=== PATIENT | male | born 1945 | race Caucasian/White ===

== ENCOUNTER 2017-07-03 13:59 | Emergency (ER) | payer MEDICARE ==
--- NOTE | 2017-07-03 15:27 | ED ---
General Adult HPI - General Chief complaint: Headache Stated complaint: Headache/ Brain Surgery Pt Time Seen by Provider: 07/03/17 15:11 Source: patient, RN notes reviewed, old records reviewed Mode of arrival: wheelchair Limitations: no limitations - History of Present Illness Initial comments: This is a 71-year-old male here for reevaluation patient. Patient's prior history of stroke. History of patient not currently not on blood thinners, no trauma. Complains of headache for 2 days worsening rating down the back right side of his neck. No neurological changes or complaints from normal. He denies any nausea or vomiting. Take medications as prescribed to no change in blood pressure at home, patient does have follow-up with his neurosurgeon on Tuesday - Related Data Home Medications Medication Instructions Recorded Confirmed Allopurinol [Zyloprim] 100 mg PO HS 03/27/14 07/03/17 Atorvastatin [Lipitor] 10 mg PO HS 07/03/15 07/03/17 Omeprazole 40 mg PO HS 05/14/16 07/03/17 Aspirin EC [Ecotrin Low Dose] 81 mg PO HS 07/03/17 07/03/17 Isosorbide Dinitrate 5 mg PO BID 07/03/17 07/03/17 Losartan [Cozaar] 50 mg PO HS 07/03/17 07/03/17 Multivitamins, Thera [Multivitamin 1 tab PO HS 07/03/17 07/03/17 (formulary)] Allergies Allergy/AdvReac Type Severity Reaction Status Date / Time clopidogrel bisulfate Allergy Rash/Hives Verified 07/03/17 15:56 [From Plavix] Review of Systems ROS Statement: Those systems with pertinent positive or pertinent negative responses have been documented in the HPI. ROS Other: All systems not noted in ROS Statement are negative. Past Medical History Past Medical History: CVA/TIA, Hypertension, Renal Disease Additional Past Medical History / Comment(s): GOUT, HX OF SEVERAL TIA'S AND (1) CVA FEBRUARY 2014 WITH LEFT SIDED WEAKNESS, 1 KIDNEY DOES NOT FUNCTION WELL - POSSIBLY HEREDITARY., DIFFICULTY SWALLOWIN-FOOD GETS STUCK. History of Any Multi-Drug Resistant Organisms: None Reported Past Surgical History: Orthopedic Surgery Additional Past Surgical History / Comment(s): LT KNEE ARTHROSCOPY, RT FOOT SX- TO FIX 2 BROKEN TOES,VASECTOMY Past Anesthesia/Blood Transfusion Reactions: No Reported Reaction, Family History of Problems w/ Anesthesia Additional Past Anesthesia/Blood Transfusion Reaction / Comment(s): PTS DAUGHTER HAS DIFFICULTY WAKING UP. Past Psychological History: No Psychological Hx Reported Smoking Status: Former smoker Past Alcohol Use History: Occasional Past Drug Use History: None Reported - Past Family History Father Family Medical History: Congestive Heart Failure (CHF), COPD Mother Family Medical History: Diabetes Mellitus General Exam Limitations: no limitations General appearance: alert, in no apparent distress Head exam: Present: atraumatic, normocephalic, normal inspection Eye exam: Present: normal appearance, PERRL, EOMI. Absent: scleral icterus, conjunctival injection, periorbital swelling ENT exam: Present: normal exam, mucous membranes moist Neck exam: Present: normal inspection. Absent: tenderness, meningismus, lymphadenopathy Respiratory exam: Present: normal lung sounds bilaterally. Absent: respiratory distress, wheezes, rales, rhonchi, stridor Cardiovascular Exam: Present: regular rate, normal rhythm, normal heart sounds. Absent: systolic murmur, diastolic murmur, rubs, gallop, clicks GI/Abdominal exam: Present: soft, normal bowel sounds. Absent: distended, tenderness, guarding, rebound, rigid Extremities exam: Present: normal inspection, full ROM, normal capillary refill. Absent: tenderness, pedal edema, joint swelling, calf tenderness Back exam: Present: normal inspection Neurological exam: Present: alert, oriented X3, CN II-XII intact Psychiatric exam: Present: normal affect, normal mood Skin exam: Present: warm, dry, intact, normal color. Absent: rash Course Vital Signs 07/03/17 14:36 Temperature 97.8 F Pulse Rate 76 Respiratory 16 Rate Blood Pressure 177/88 O2 Sat by Pulse 97 Oximetry Medical Decision Making - Medical Decision Making 71 male the ER for evaluation of headache. Patient has scapular pain which is negative, history of brain bleed, that was concerned. Patient be discharged home, follow-up with neurosurgeon on Tuesday - Radiology Data Radiology results: report reviewed (CT The brain is negative), image reviewed Disposition Clinical Impression: Tension headache, Headache Disposition: HOME SELF-CARE Condition: Good Instructions: Acute Headache (ED) Referrals: Vijaya Landry MD [Primary Care Provider] - 1-2 days
--- NOTE | 2017-07-03 15:48 | CT ---
EXAMINATION TYPE: CT brain wo con DATE OF EXAM: 07/03/2017 COMPARISON: 06/15/2016 INDICATION: ABAD, History of brain surgery for hematoma DLP: 1159 mGycm, Automated exposure control for dose reduction was used. CONTRAST: None CT of the brain is performed utilizing 3 mm thick sections through the posterior fossa and 3 mm thick sections through the remaining calvarium. Study is performed within 24 hours of arrival to the hosp [facility]. No abnormal hyperdensity is present to suggest an acute intracranial hemorrhage. No mass lesion is evident. No acute infarcts are evident. Bilateral brunilda holes are present from prior craniotomies. No abnormal extra-axial collections are evident. There is some minimal residual extra-axial space near the anteri or left brunilda hole. Ventricles and sulci are appropriate for the patient age. There is opacification of the left sphenoid sinus as well as ethmoid air cells posteriorly on the lef t. The right frontal sinus is aplastic. Mastoid air cells are clear. No recurrent or residual subdural hematomas are evident IMPRESSIONS: 1. No recurrent or residual hematomas. 2. Chronic appearing white matter ischemic changes with age-related atrophy. 3. No acute intracranial process.
[2017-07-03 16:42] VITALS: BP 171/89; PULSE 63; RESP 18; TEMP 98.7
== END 2017-07-03 16:43 | disposition home or self-care (01) ==
LOC: EC 13:59
DX: G44.209 Tension-type headache, unspecified, not intractable (principal); I10 Essential (primary) hypertension; Z86.73 Personal history of transient ischemic attack (TIA), and cerebral infarction without residual deficits; Z87.891 Personal history of nicotine dependence; Z79.82 Long term (current) use of aspirin; Z79.899 Other long term (current) drug therapy; Z88.8 Allergy status to other drugs, medicaments and biological substances
CPT/HCPCS: 70450; 99284

== ENCOUNTER → 2020-06-12 | Outpatient (CLI) | payer MEDICARE ==
--- NOTE | 2020-06-12 23:00 | XR ---
EXAMINATION TYPE: XR cervical spine comp DATE OF EXAM: 06/12/2020 COMPARISON: None HISTORY: 74-year-old male R13.10, M47.812 TECHNIQUE: 7 views FINDINGS: No craniocervical junction of the midbody, predental space widening, or prevertebral soft tissue swel ling. Degenerative changes at the C1 dens articulation. There is moderate disc/endplate degenerative change at C4-C7 levels with disc space narrowing and endplate spondylosis. The cervicothoracic juncti on is obscured by the patient's shoulders and not assessed. The remaining alignment is maintained. Multilevel facet and uncovertebral joint arthropathy mid to lower cervical spine. On the right, there is moderate to severe bony neural foraminal narrowing at C5-C6 and severe at C6-C 7. Mild at C4-C5. On the left, there is moderate bony neuroforaminal narrowing at C6-C7 and mild at C5-C6. IMPRESSION: Moderate multilevel spondylotic change with bilateral neural foraminal narrowing as outlined above. Note that the cervicothoracic junction is obscured by the patient's shoulders and not assessed. The r emaining alignment is maintained.
== END | disposition home or self-care (01) ==
LOC: RADXRMAIN 10:31
PROVIDERS: ATTEND Family Medicine
DX: M48.02 Spinal stenosis, cervical region (principal); M47.812 Spondylosis without myelopathy or radiculopathy, cervical region; M46.92 Unspecified inflammatory spondylopathy, cervical region; R13.10 Dysphagia, unspecified
CPT/HCPCS: 72050

== ENCOUNTER → 2020-07-04 | Outpatient (CLI) | payer MEDICARE ==
--- NOTE | 2020-07-04 15:36 | XR ---
EXAMINATION TYPE: XR skull complete DATE OF EXAM: 07/04/2020 COMPARISON: CT brain 07/03/2017 HISTORY: Preprocedural clearance for MRI. History of brain surgery. TECHNIQUE: AP and lateral views of the skull obtained. FINDINGS: Dental hardware. [place] holes of the bilateral skull. No unexpected radiopaque foreign body. IMPRESSION: No unexpected radiopaque foreign body. Patient is cleared for MRI.
== END | disposition home or self-care (01) ==
LOC: RADXRMAIN 13:16
PROVIDERS: ATTEND Family Medicine
DX: Z01.818 Encounter for other preprocedural examination (principal)
CPT/HCPCS: 70260

== ENCOUNTER → 2020-08-15 | Outpatient (CLI) | payer MEDICARE ==
--- NOTE | 2020-08-15 15:07 | US ---
EXAMINATION TYPE: US kidneys/renal and bladder DATE OF EXAM: 08/15/2020 COMPARISON: US CLINICAL HISTORY: N18.9,R32,R79.9 CHR KIDNEY DISEASE,URINARY INCONTINENCE. EXAM MEASUREMENTS: Right Kidney: 11.4 x 5.1 x 6.0 cm Left Kidney: 10.7 x 5.4 x 4.7 cm Post Void Residual Volume: 130.3 mL Right Kidney: lower cortical cyst seen = 1.1 x 1.0 x 1.0cm Left Kidney: small cortical cyst seen inferiorly = 0.5 x 0.7 x 0.4cm Bladder: wnl Bilateral Jets seen: yes Normal Post Void Residual: abnormal post void volume 130 mL. Enlarged prostate is noted at 46.6ml (nl volume = 30.0ml. IMPRESSION: 1. Small cortical renal cysts. 2. Urinary retention. 3. Enlarged prostate
== END | disposition home or self-care (01) ==
LOC: RADUSWWP 14:04
PROVIDERS: ATTEND Family Medicine
DX: N28.1 Cyst of kidney, acquired (principal); N40.1 Benign prostatic hyperplasia with lower urinary tract symptoms; N18.9 Chronic kidney disease, unspecified; R33.9 Retention of urine, unspecified; R32 Unspecified urinary incontinence; R79.9 Abnormal finding of blood chemistry, unspecified
CPT/HCPCS: 76770